=== PATIENT | female | born 1980 | race Caucasian/White ===

== ENCOUNTER 2018-07-26 18:58 | Emergency (ER) | payer MEDICAID, SELFPAY ==
[2018-07-26 19:09] VITALS: BP 132/77; RESP 17; TEMP 37; O2SAT 99
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
[2018-07-26 20:20] LABS: Bilirubin Negative (Negative); Blood Negative (Negative); Clarity Cloudy; Glucose Negative (Negative); Ketones Trace mg/dL (Negative); Leukocyte Esterase Negative (Negative); Nitrite Positive (Negative); Urobilinogen 0.2 EU/dL (Up TO 0.2); pH 5.5 (5-8)
[2018-07-26 20:21] LABS: Bacteria Many HPF (Negative); C & S Indicated? Yes; Casts Negative LPF (Negative); Crystals Negative HPF (Negative); Epithelial Cells Rare HPF (Negative); Mucus Negative (Negative); Other Cells Negative (Negative); RBC Negative (0-2); WBC 0-2 HPF (0-5)
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
[2018-07-26] MEDS: Acetaminophen 325 MG TAB (21:40)
[2018-07-26 22:11] VITALS: BP 108/88; PULSE 82; RESP 17; TEMP 36.8; O2SAT 95
== END 2018-07-26 22:24 | disposition left against medical advice (07) ==
PROVIDERS: Student in an Organized Health Care Education/Training Program; Emergency Provider Physician Assistant; PCP Specialist/Technologist Athletic Trainer
DX: S70.11XA Contusion of right thigh, initial encounter (principal); S09.90XA Unspecified injury of head, initial encounter; H53.8 Other visual disturbances; F07.81 Postconcussional syndrome; R51 Headache; R93.0 Abnormal findings on diagnostic imaging of skull and head, not elsewhere classified; Y04.0XXA Assault by unarmed brawl or fight, initial encounter; R68.84 Jaw pain
CPT/HCPCS: 73552; 81025; 90471; 99284; 70450; 70486; 71046; 74176; 81003; 81015; 87086; 99285